=== PATIENT | female | born 1995 | race Caucasian/White ===

== ENCOUNTER 2025-01-27 23:03 | Emergency (ER) | payer MEDICAID ==
[~2025-01-27] VITALS: Ht 165.1 cm; Wt 80.0 kg
[2025-01-27 23:04] VITALS: O2SAT 99
[2025-01-28 01:43] VITALS: BP 144/69; PULSE 87; RESP 18; TEMP 36.7; O2SAT 99
== END 2025-01-28 01:44 | disposition home or self-care (01) ==
LOC: ER 23:03
DX: F12.10 Cannabis abuse, uncomplicated (principal); R06.81 Apnea, not elsewhere classified
CPT/HCPCS: 71045; 99283